=== PATIENT | male | born 1975 | race Caucasian/White ===

== ENCOUNTER 2018-01-01 01:30 | Emergency (ER) | payer OTHER ==
[~2018-01-01] VITALS: Ht 193 cm; Wt 102.1 kg
[2018-01-01 01:58] LABS: ABSOLUTE BASOPHILS 0.1 thou/uL (0.0-0.2); ABSOLUTE EOSINOPHILS 0.6 thou/uL (0.0-0.7); ABSOLUTE LYMPHOCYTES 2.6 thou/uL (0.8-5.3); ABSOLUTE MONOCYTES 0.5 thou/uL (0.0-1.2); ABSOLUTE NEUTROPHILS 4.5 thou/uL (1.6-8.1); BASOPHILS 0.9 %; EOSINOPHILS 6.9 %; HEMATOCRIT 44.9 % (42.0-52.0); HEMOGLOBIN 15.5 gm/dL (14.0-18.0); LYMPHOCYTES 31.3 %; MCH 30.4 pg (26.0-34.0); MCHC 34.6 g/dL (28.0-37.0); MCV 87.7 fL (80.0-100.0); MONOCYTES 6.4 %; MPV 9.5 fl. (7.2-11.1); NUCLEATED RBCS 0 /100WBC; PLATELET COUNT* 173 thou/uL (150-400); POLYS 54.5 %; RBC 5.11 mil/uL (4.50-6.00); RDW-CV 13.7 % (10.5-14.5); WBC 8.3 thou/uL (4.0-11.0)
[2018-01-01 02:42] LABS: ANION GAP 9 mmol/L (7-16); BUN 16 mg/dL (7-18); CHLORIDE 103 mmol/L (98-107); CO2 26 mmol/L (21-32); POTASSIUM 3.7 mmol/L (3.5-5.1); SODIUM 138 mmol/L (136-145)
[2018-01-01 02:43] LABS: GLUCOSE 100 mg/dL (70-99); SGOT 18 U/L (15-37)
[2018-01-01 02:44] LABS: ALKALINE PHOSPHATASE 83 U/L (46-116); CALCIUM 8.3 mg/dL (8.5-10.1); LIPASE 157 U/L (73-393); TOTAL BILIRUBIN 0.2 mg/dL (<0.1-1.0)
[2018-01-01 02:45] LABS: ALBUMIN 3.8 g/dL (3.4-5.0); SGPT 24 U/L (30-65); TOTAL PROTEIN 6.4 g/dL (6.4-8.2); TROPONIN-I LEVEL <0.06 ng/mL (<0.06)
[2018-01-01] MEDS ORDERED: CARAFATE 1 GM TA1 GM PO (04:27)
[2018-01-01] MEDS ORDERED: ULTRAM 50MG TAB50 MG PO (04:27)
[2018-01-01] MEDS ORDERED: LISINOPRIL-HCT1 EACH PO (04:30)
[2018-01-01 04:43] VITALS: BP 132/86
--- NOTE | 2018-01-02 14:41 | EKG ---
[place] [address] ELECTROCARDIOGRAM REPORT Name: MARIO HAMILTON Room: [facility]#: [id number] Admission: 01/01/18 Attend Phys: Discharge: 01/01/18 Date of : 75 Report #: [id number] THIS REPORT FOR: //name// [facility] ED Test Date: 2018-01-01 Test Time: 01:35:07 Pat Name: MARIO HAMILTON Department: Room: Gender: M [employer]: CADY : 1975 Requested By: Olivia Rodriguez Order Number: [id number] MD: Mike Zavaleta Measurements Intervals [place] Rate: 75 P: 8 UT: 190 QRS: -31 QRSD: 94 T: 25 QT: 379 QTc: 424 Interpretive Statements Sinus rhythm Inferior infarct, old, possible Baseline wander in lead(s) II,III,aVL,aVF,V2 No previous ECG available for comparison Electronically Signed On 01-02-2018 14:41:17 CDT by Mike Zavaleta [email or web address] <ELECTRONICALLY SIGNED> By: Mike Zavaleta MD, [facility] 01/02/18 [id number] Mkie Zavaleta MD, [facility] /EPI
== END 2018-01-01 04:46 | disposition home or self-care (01) ==
LOC: M.ERS 01:30
PROVIDERS: Personal Emergency Response Attendant
DX: R07.9 Chest pain, unspecified (principal); I10 Essential (primary) hypertension; F17.200 Nicotine dependence, unspecified, uncomplicated